=== PATIENT | female | born 1955 | race Caucasian/White ===

== ENCOUNTER 2022-12-04 12:34 | Outpatient (CLI) | payer BC, SELFPAY | END 2022-12-04 12:35 | disposition home or self-care (01) | LOC: NFLDREF 12:35 | PROVIDERS: Visit Provider Obstetrics & Gynecology | DX: R32 Unspecified urinary incontinence (principal) | CPT/HCPCS: 87086 ==

== ENCOUNTER 2023-01-21 08:41 | Day surgery (SDC) | payer BC, SELFPAY ==
[2023-01-21] VITALS (27 sets, daily range): BP systolic 101–133; BP diastolic 48–72; PULSE 41–67; RESP 12–16; TEMP 35.9–36.7; O2SAT 90–100; BMI 22.9
[2023-01-21] MEDS: LACTATED RINGERS 1000 ML 1,000 ML 100 ML IV ×2 (08:50→12:11)
--- NOTE | 2023-01-21 08:55 | P.GYNPRC_ITS ---
Procedure Note Date Seen: 01/21/23 Procedure Details: PREOPERATIVE DIAGNOSIS: Symptomatic uterine prolapse and stage II cystocele Stress urinary incontinence POSTOPERATIVE DIAGNOSIS: Symptomatic uterine prolapse and stage II cystocele Stress urinary incontinence PROCEDURE: Total vaginal hysterectomy with bilateral salpingo-oophorectomy, modified Moreno's culdoplasty, anterior colporrhaphy, retropubic mid urethral sling, cystoscopy SURGEON: Malathi Hill MD DAIRY CATTLE FARMER: Ingrid Street MD ANESTHESIA: Spinal, IV sedation IV FLUIDS: 1800 mL crystalloid URINE OUTPUT: Not measured EBL: 25 mL FINDINGS: 1. Pelvic exam under anesthesia confirmed stage II cystocele and uterine prolapse. There were no palpable adnexal masses on bimanual exam. 2. Uterine weight 27 g 3. Upon cystoscopy performed at multiple times, bilateral ureteral jets were noted and there was no injury to the bladder mucosa. The last cystoscopy was performed after placement of mid urethral sling, as described below. COMPLICATIONS: None PROCEDURE IN DETAIL: Patient was taken to the operating room with IV running. She received cefazolin in preoperative prophylaxis. She was positioned on the operating table in dorsal lithotomy position legs fully supported in Yellofin stirrups. She was prepped and draped in the usual sterile fashion. Nelson catheter was inserted. Exam under anesthesia revealed the above-noted findings. The anterior and posterior lips of the cervix were grasped with thyroid Ariana clamps. The cervicovaginal junction was infiltrated with a total of 20 mL of dilute vasopressin. Cervicovaginal junction was incised with the scalpel circumferentially. The vaginal epithelium was dissected off the uterosacral ligaments with a combination of blunt and sharp dissection bilaterally. The anterior colpotomy was performed sharply and a Arelis was placed between the uterus and bladder. Posterior colpotomy was performed sharply and a long weighted speculum was placed in the cul-de-sac. Bilateral uterosacral ligaments were clamped, cut, and suture ligated, and tagged for later identification. The cardinal and remnants of the broad ligament bilaterally were clamped, cut, and suture ligated. This freed the uterus from its attachments and it was delivered through the vagina. Attention was 1st turned to the right tube and ovary, which was physically normal in appearance. Ovary was quite small. The infundibulopelvic ligament was cross clamped, coagulated, and transected with The LigaSure Impact device. The remainder of the broad ligament was similarly cauterized and transected, freeing the right tube and ovary, which were removed from the pelvis. Hemostasis was noted. This procedure was repeated on the left side and hemostasis was again noted. The bowels were moved out of the pelvis with packing and the patient was placed in Trendelenburg position. The 2 modified Moreno's sutures were placed as follows. The 1st was placed approximately 1 cm medial to the left vaginal angle, through the left uterosacral ligament approximately 2.5 cm above the vaginal cuff, pulled through the peritoneum of the cul-de-sac, through the right uterosacral ligament, approximately 2.5 cm above the cuff, and through the vagina about 1 cm from the right vaginal cuff angle. This was labeled #1 and tagged for later identification. Another stitch was placed just medial to the 1st through the vaginal cuff, and just above the 1st along the uterosacral ligaments and the peritoneum of the cul-de-sac. This was labelled #2 and tagged for later identification. Attention was turned to the anterior vaginal wall. It was infiltrated with a total of 10 mL of Marcaine and epinephrine. An incision was made from the vaginal cuff proceeding to the urethrovesical junction. The vaginal epithelium was dissected off the fibromuscularis beneath it with a combination of first sharp, with then blunt dissection at the angles. This was done bilaterally. The fibromuscularis was then plicated in the midline with interrupted sutures of 0 Vicryl. The vaginal epithelium was trimmed slightly on the each side, and the vaginal epithelium was closed with a running stitch of 0 Vicryl. The first of several cystoscopies was performed, revealing no damage to the bladder mucosa. The patient was given sodium fluorescein for better visualization of ureteral jets, and these were noted bilaterally. The cystoscope was removed. Then, the modified Moreno's sutures were tied down beginning with that labeled #2 and then #1. After tying down each of the sutures, cystoscopy was performed, revealing bilateral ureteral jets. Thereafter, the vaginal epithelium was closed, incorporating the distalmost aspects of the uterosacral ligaments into the cuff angle closures. This was done in an interrupted fashion with 0 Vicryl. Nelson catheter was replaced. The mons was marked in the midline with a marker, extending from just above the clitoral rowe in the midline to just above the pubic symphysis. A jennifer was made approximately 2 cm just to the right and to the left of the midline, just over the pubic bone. 30 mL of saline was injected into the retropubic space just behind the pubic bone bilaterally. A weighted speculum was placed in the vagina. The anterior vaginal wall was gra sped in the midline 1 cm beneath the urethral meatus with an Allis clamp, and a 2nd Allis clamp was placed at the urethrovesical junction. The intervening anterior vaginal wall was infiltrated with Marcaine with dilute epinephrine, carrying this infiltration to the pubic bone bilaterally. A 1.5 cm incision was made in the anterior vaginal wall, and Metzenbaum scissors were used to dissect the subepithelial tunnel from that incision to the pubic bone, both to the right and the left of the urethra. The Nelson catheter was removed. A rigid catheter guide was placed inside a 16 [place] catheter, this was inserted into the bladder. Attention was first turned to placement of the right trocar. The trocar was placed within the blue plastic sheath. The trocar tip was inserted through the vaginal subepithelial tunnel on the patient's right side, and slowly guided upwards just behind the posterior aspect of the pubic bone, until the tip of the trocar was guided through the stab incision on the patient's right side. The bladder was deviated to the patient's left with the rigid catheter guide during this time. The plastic sheath was disconnected from the trocar, and the tip was grasped with hemostat. The trocar was then placed within the blue plastic sheath at the other end of the mesh. The trocar tip was inserted through the vaginal subepithelial tunnel on the patient's left side, and slowly guided upward just behind is posterior aspect of the pubic bone, until the tip of the trocar was guided through the stab incision on the patient's left side. The bladder was deviated to the patient's right with the rigid catheter guide during this time. The plastic sheath was again disconnected from the trocar, and the tip was grasped with a hemostat. Cystoscopy was then performed, revealing no injury to the bladder mucosa and the plastic sheaths were found to be freely movable outside the bladder dome. Nelson catheter was again inserted. The blue plastic sheaths were pulled through the stab incisions just above the pubic bone, and the mesh was tensioned over a #9 Hegar dilator. The mesh was trimmed to beneath the skin on her abdomen, and the sites were closed with surgical glue. The vaginal incision was closed with a running, locked stitch of 2 0 Vicryl. Hemostasis was noted. The patient tolerated the procedure well and was taken to recovery area in stable condition.
[2023-01-21] MEDS: SODIUM CHLORIDE 0.9 % (FLUSH) 10 ML SYRINGE IVF (09:13)
[2023-01-21 09:53] LABS: Hemoglobin* 13.6 gm/dL (12.0-16.0)
[2023-01-21 10:09] LABS: Creatinine* 0.8 mg/dL (0.5-1.5); Est. Creatinine Clearance* 42.59; Estimated Glomerular Filt Rate 80 ml/min
--- NOTE | 2023-01-21 10:27 | W.ANESCHARGE ---
Anesthesia Charges Start Date/Time Anesthesia Start Date: 01/21/23 Anesthesia Start Time: 11:01 Stop Date/Time Anesthesia Stop Date: 01/21/23 Anesthesia Stop Time: 14:00
[2023-01-21] MEDS: CEFAZOLIN 2 GM INJ IVP (11:10)
[2023-01-21] MEDS: 0.9 % SODIUM CHLORIDE 50 ml INJECTION (11:48)
[2023-01-21] MEDS: VASOPRESSIN 20 UNIT/ML INJ INJECTION (11:48)
--- NOTE | 2023-01-21 14:04 | W.ANESCHARGE ---
Anesthesia Charges Start Date/Time Anesthesia Start Date: 01/21/23 Anesthesia Start Time: 11:01 Stop Date/Time Anesthesia Stop Date: 01/21/23 Anesthesia Stop Time: 14:00
--- NOTE | 2023-01-21 14:48 | SUR.PHASEI ---
patient met discharge criteria per anesthesia
[2023-01-21] MEDS: LACTATED RINGERS 1000 ML 1,000 ML 125 ML IV ×2 (15:51→23:53)
[2023-01-21] MEDS: ONDANSETRON 2 MG/ML inj 4 MG IVP ×2 (15:51→23:59)
[2023-01-21] MEDS: KETOROLAC 15 MG/ML inj IVP ×2 (16:43→21:31)
[2023-01-21] MEDS: diphenhydrAMINE 50 MG/ML inj 12.5 MG IVP (17:50)
[2023-01-21] MEDS: LATANOPROST 0.005% OPHTH 1 DROP EYE-BOTH (18:42)
--- NOTE | 2023-01-21 18:55 | PC.NURSE ---
End of shift: Patient pleasant and cooperative. Patient vitally stable, lungs clear, BS WNL, IV running LR at 125. Patient on 1 L of oxygen as sats decrease when patient falls asleep. Patient denies pain. Patient was nauseous at one point, anti-emetic given, benadryl also given for itchiness and to improve expiratory breathing due to COPD. Nausea and itchiness resolved. Patient had a small dinner and tolerated regular diet well. Patient with scan blood on pad.
[2023-01-22] VITALS (15 sets, daily range): BP systolic 103–120; BP diastolic 56–66; PULSE 44–70; RESP 12–16; TEMP 36.5–36.6; O2SAT 90–96
[2023-01-22] MEDS: 0.9 % SODIUM CHLORIDE 500 ML 500 ML IV (02:17)
[2023-01-22] MEDS: KETOROLAC 15 MG/ML inj IVP ×2 (04:20→10:22)
[2023-01-22 06:10] LABS: Hemoglobin* 11.6 gm/dL (12.0-16.0)
[2023-01-22 06:27] LABS: Creatinine* 0.9 mg/dL (0.5-1.5); Est. Creatinine Clearance* 42.59; Estimated Glomerular Filt Rate 70 ml/min
[2023-01-22] MEDS: Fluticasone-Umeclidin-Vilanter [Trelegy Ellipta] 100-62.5-25 mcg 1 EACH IH (06:37)
[2023-01-22] MEDS: ONDANSETRON 2 MG/ML inj 4 MG IVP ×2 (06:43→09:03)
--- NOTE | 2023-01-22 06:57 | PC.NURSE ---
Pt A&O. Pt titrated to 0.5 L o2 with sats 91-94% while sleeping. Pt does have COPD. ?Rating pain 2-3/10 scheduled tordal given and pt stated relief. RR remains 12 and above. Pt denies SOB. Around 0200 500 NS bolus given for low urine output. Nelson patent and draining. Pt had one episode of nausea and had a 125ml emesis. Zofran given with stated relief. Surgical sites open to air w/out draining. Pt has scant amount of blood draining from vagina. Adequate output at 0600. Backfill bladder with 300cc of saline at 0630. Waiting for pt to urinate.
--- NOTE | 2023-01-22 08:34 | P.GYNPN_ITS ---
BODYWORK THERAPIST - A/P Assessment and plan (1) Status post hysterectomy with oophorectomy: Problem details: Total vaginal hysterectomy, BSO, TVT Status: Acute Plan Postop day 1, states to have been doing great last night until this morning when she woke up and was feeling nauseous and vomited once, has also significant pain on her mons pubis associated with right TVT incision. Patient describes it as hair pulling, physical exam is normal. Postop lab work with normal hemoglobin 11.6 and normal creatinine. She was able to empty her bladder this morning output of 75 mL, bladder scan 30 mL. This is appropriate, most likely insurance claim representative of dehydration. Will IV hydrate this morning, optimize nausea/vomiting medication, will add pain medication with p.o. Tylenol and if this does not resolve symptoms highly encourage patient to try low dose of oxycodone. Otherwise she has been able to ambulate without dizziness, shortness of breath. She has been passing gas. Discussed that if she is able to tolerate food without vomiting and if pain is tolerable by the afternoon that my recommendation would be to discharge home. Patient is in agreement with plan. Will follow-up. Postoperative Procedures: Procedures Operation Date: 01/21/23 10:35 Actual Procedure Side Surgeon p Total Vaginal Hysterectomy, Bilateral Salpingo-Oophorectomy, Modified Moreno's Culdoplasty, Anterior Colporrhaphy, Retro Pubic Mid Urethral Sling(TVT) Malathi Hill MD Postoperative day: 1 Postoperative status: doing well and marginal pain control Postoperative plan: routine post-op care and ambulate Time Spent With Patient Time: Total time spent is greater than 50% in coordination of care (as documented) at patient's floor/unit and/or counseling patient: Time with patient: less than 15 minutes BODYWORK THERAPIST- PN:Subj Post-Op Subjective Time Seen by Provider: 08:34 Date Seen: 01/22/23 Post Operative Details: Post-operative day number 1: status post Total vaginal hysterectomy, bilateral salpingo-oophorectomy, Moreno's culdoplasty, anterior repair, TVT. Subjective: pain not well controlled, ambulating well, voiding without difficulty, patient reports nausea and passing flatus BODYWORK THERAPIST-PN: Obj Exam Physical Exam: Vital signs: Temp Pulse Resp BP Pulse Ox O2 Del Method O2 Flow Rate 97.8 F 55 L 16 103/59 L 94 Room Air 1 01/22/23 03:00 01/22/23 03:00 01/22/23 06:26 01/22/23 03:00 01/22/23 03:00 01/22/23 03:00 01/21/23 22:38 Narrative: VITAL SIGNS: As noted above. GENERAL APPEARANCE: Alert, cooperative female in no acute distress. MOOD & AFFECT: Normal. ABDOMEN: Soft, non-distended and nontender. Bowel sounds present. : Mons pubis TVT incisions look to be bruised, right side more tender to palpa tion, no evidence of hematoma of fluid collection. Otherwise normal external female anatomy. Pad with minimal amount of blood. EXTREMITIES: Nonedematous. Well perfused. Nontender. Urinary Catheter Management: Urethral: Cath placed during this visit: no BODYWORK THERAPIST - PN: Obj Data Labs Labs: Laboratory Results - last 24 hr 01/21/23 01/22/23 09:40 05:59 Hgb 13.6 11.6 L Creatinine 0.8 0.9 Estimated Creat Clear 42.59 42.59 Estimated GFR 80 70 Blood Type O Positive Antibody Screen NEGATIVE
[2023-01-22] MEDS: buPROPion XL 150 MG TABLET 300 MG PO (09:03)
[2023-01-22] MEDS: ACETAMINOPHEN 500 MG TABLET 1000 MG PO (09:03)
[2023-01-22] MEDS: LACTATED RINGERS 1000 ML 1,000 ML 125 ML IV (10:22)
--- NOTE | 2023-01-22 13:23 | PM.GYNDS1 ---
DS: Providers Provider Time Seen by Provider: 08:00 Date Seen: 01/22/23 Primary care physician: Schuyler Mcdonough DO Attending Physician on discharge: MD Alberto Date of Discharge: 01/22/23 DS: Diagnosis Discharge Diagnosis (1) Status post hysterectomy with oophorectomy: Status: Acute Problem details: Total vaginal hysterectomy, BSO, TVT DIGITAL MARKETING CONSULTANT-Discharge Summary Hospital Course Hospital Course Narrative: Patient is a 67 year old admitted on 01/21/2023 for elective surgery. Indication for surgery: Pelvic organ prolapse, stress urinary incontinence. She had an uncomplicated surgery. Postoperative course has been uneventful. Vitals have been stable. She has remained afebrile. Today, on postoperative day 1, she reports the pain is well controlled. She has been able to ambulate Without difficulty. She is tolerating regular diet. She is passing flatus. Nelson catheter has been removed, and she is voiding without difficulty. Time Spent with Patient Time attestation: Total time spent providing and/or coordinating discharge services: Time spent: Less than 30 minutes DIGITAL MARKETING CONSULTANT - Exam Physical Exam: Vital signs: Temp Pulse Resp BP Pulse Ox O2 Del Method O2 Flow Rate 97.7 F 70 14 103/56 L 93 Room Air 1 01/22/23 11:20 01/22/23 11:20 01/22/23 11:21 01/22/23 11:20 01/22/23 11:20 01/22/23 11:20 01/21/23 22:38 Narrative: VITAL SIGNS:? As noted above. GENERAL APPEARANCE:? Alert, cooperative female in no acute distress. MOOD & AFFECT:? Normal. ABDOMEN:? Soft, non-distended and nontender. Bowel sounds present. : Mons pubis TVT incisions look to be bruised, right side more tender to palpation, no evidence of hematoma of fluid collection. Otherwise normal external female anatomy. Pad with minimal amount of blood. EXTREMITIES:? Nonedematous. Well perfused.? Nontender. DIGITAL MARKETING CONSULTANT - DS: Data Data Completed and Pending Labs on day of discharge: Labs from last 24 hours 01/22/23 05:59 Hgb 11.6 L Creatinine 0.9 Estimated Creat Clear 42.59 Estimated GFR 70 Procedures Procedures: Procedures Operation Date: 01/21/23 10:35 Actual Procedure Side Surgeon p Total Vaginal Hysterectomy, Bilateral Salpingo-Oophorectomy, Modified Moreno's Culdoplasty, Anterior Colporrhaphy, Retro Pubic Mid Urethral Sling(TVT) Malathi Hill MD Discharge Plan Discharge Disposition: Home, Self-Care Discharging Surgeon: Ree Dominguez Follow-Up Appointment: 2 weeks post op Prescriptions: New acetaminophen 500 mg Tablet 1,000 mg PO Q6H PRNQty: 20 0RF ibuprofen 600 mg tablet 600 mg PO Q6H PRNQty: 20 0RF Continued bupropion HCl 150 mg tablet extended release 24 hr 300 mg PO DAILY Trelegy Ellipta 100-62.5-25 mcg blister with device 1 inh inhalation DAILY Combivent Respimat 20-100 mcg/actuation mist 1 puff inhalation QID PRN albuterol sulfate 90 mcg/actuation HFA aerosol inhaler 2 puff inhalation Q4H PRN zolpidem 5 mg tablet 5 mg PO HS PRN (Reason: insomnia) latanoprost 0.005 % drops 1 drp ophthalmic (eye) QPM cyanocobalamin (vitamin B-12) 1,000 mcg/mL solution 1,000 mcg IM Q28D Activity Level: Light activity Activity Detail: No heavy lifting more than 15-20 pounds for 6 weeks, nothing vaginally for 6 weeks Discharge Diet: Regular Patient Instructions: Surgical Site Infections (DC) Forms: Work/School Release Follow-up: Schuyler Mcdonough DO [Primary Care Provider] - Discharge Orders: Discharge Order (Routine); Ordered 01/22/23 Ordered By: Ree Dominguez
--- NOTE | 2023-01-22 14:32 | PC.NURSE ---
Pt calm and cooperative during shift. Pt has had no complaints of pain. Pt had N/V early am during shift. Resolved with medication and time. Pt has 3 lap sites that are glued, intact, no drainage. Pt has scant amounts of blood in urine. Pt is tolerating regular diet. Pt discharging home with .? ? ?
== END 2023-01-22 14:30 | disposition home or self-care (01) ==
LOC: OR 08:45 → MEDSURG 08:47
PROVIDERS: PCP Family Medicine; Visit Provider Obstetrics & Gynecology
PROC: (CPT 57260; principal; 2023-01-21 10:15)
DX: N81.3 Complete uterovaginal prolapse (principal); N39.3 Stress incontinence (female) (male); G89.18 Other acute postprocedural pain; R11.2 Nausea with vomiting, unspecified
CPT/HCPCS: 58263; 57288; 00944; 36415; 82565; 85018; 86850; 86900; 86901; 88307; 88342; A9270; C1771; J0690; J1100; J1200; J1885; J2250; J2274; J2405; J2704; J3010; J7120

== ENCOUNTER 2023-02-22 09:45 | Outpatient (CLI) | payer BC, SELFPAY | END 2023-02-22 09:46 | disposition home or self-care (01) | PROVIDERS: PCP Family Medicine; Visit Provider Obstetrics & Gynecology | DX: R68.82 Decreased libido (principal) | CPT/HCPCS: 84403; 84443 ==

== ENCOUNTER 2023-07-02 09:18 | Outpatient (CLI) | payer BC, SELFPAY | END 2023-07-02 09:19 | disposition home or self-care (01) | LOC: NFLDREF 09:18 | PROVIDERS: PCP Family Medicine; Visit Provider Obstetrics & Gynecology | DX: R68.82 Decreased libido (principal); Z79.899 Other long term (current) drug therapy | CPT/HCPCS: 84403 ==

== ENCOUNTER 2023-09-02 06:05 | Day surgery (SDC) | payer BC, SELFPAY ==
[2023-09-02] VITALS (15 sets, daily range): BP systolic 123–149; BP diastolic 66–84; PULSE 46–63; RESP 12–22; TEMP 36.2–36.6; O2SAT 94–100; BMI 21.9
--- OUTSIDE RECORDS SUMMARY | 2023-09-02 06:09 | XMS_ITS | Clinical Summary ---
Author Name Unknown Organization [facility] Address [place], [place] [address] Care Team Providers Care Global Expansion Sales Director Name Role Phone Leana Valencia MD Primary Care Provider [phone] Allergies Active Allergy Reactions Criticality Noted Date Comments Prochlorperazine Anaphylaxis 06/21/2007 Venlafaxine Analogues Hallucinations 02/19/2016 Iodinated Contrast Media Anaphylaxis High 02/20/2008 Diatrizoate Allergen Myalgia 06/21/2007 Pneumococcal Vaccine Edema 09/01/2010 Size of a basketball at site Fluoxetine Other - Describe In Comment Field 02/19/2016 Yawned a lot Medications Medication Sig Dispensed Refills Start Date End Date Status latanoprost (XALATAN) 0.005 % ophthalmic solution Place 1 Drop into left eye at bedtime. 2.5 mL 0 10/01/2014 Active ipratropium-albute roL (combivent respimat) (20-100 mcg each actuation) mist inhalerIndications :Chronic obstructive pulmonary disease, unspecified COPD type (HC) Inhale 1 Puff by mouth 4 times daily if needed for Shortness Of Breath. 3 Each 4 06/09/2022 Active buPROPion (WELLBUTRIN XL) 150 mg Extended-Release tabletIndications: Anxiety Take 1-2 Tablets (150-300 mg) by mouth every morning. For mood. 180 Tablet 3 06/09/2022 Active albuterol-ipratrop ium (DUONEB) (2.5-0.5 mg) in 3 mL NEBULIZATION solutionIndication s:Chronic obstructive pulmonary disease, unspecified COPD type (HC) Inhale 3 mL via a nebulizer 4 times daily if needed for Shortness Of Breath (shortness of breath). 120 mL 11 06/09/2022 Active albuterol HFA (PRO-AIR; VENTOLIN; PROVENTIL) 90 mcg/actuation inhalerIndications :Chronic obstructive pulmonary disease, unspecified COPD type (HC) Inhale 2 Puffs by mouth every 4 hours if needed for Shortness Of Breath or Wheezing. 1 Each 5 11/16/2022 Active fluticasone wgr-fjgsygcnrpja-o ilanterol (Trelegy Ellipta) 100-62.5-25 mcg inhalerIndications :Chronic obstructive pulmonary disease, unspecified COPD type (HC) Inhale 1 Puff by mouth once daily. 180 Each 1 11/16/2022 Active zolpidem (AMBIEN) 5 mg tabletIndications: Insomnia secondary to anxiety TAKE 1 TABLET (5 MG) BY MOUTH AT BEDTIME IF NEEDED FOR SLEEP.(QUANTITY PER INSU) 15 Tablet 2 06/10/2023 Active estradioL (ESTRACE) 0.01% (0.1 mg/g) vaginal cream Insert 1 g into the vagina every Wednesday and Wednesday. 0 07/02/2023 Active ketoconazole 2% shampoo (NIZORAL) 2 % shampoo WASH SCALP 2 TO 3 TIMES PER WEEK.LATHER & LET SIT AT LEAST 5 MINUTES BEFORE RINSING. 0 07/28/2023 Active busPIRone (BUSPAR) 10 mg tabletIndications: Anxiety state Take 1 Tablet (10 mg) by mouth 3 times daily if needed for Anxiety. 30 Tablet 1 01/05/2023 4 Discontinue d(*Patient states no longer taking) cephalexin (KEFLEX) 500 mg capsuleIndications :Acute cystitis with hematuria Take 1 Capsule (500 mg) by mouth three times daily. 21 Capsule 0 01/27/2023 4 Discontinue d(*Med complete/Re gimen complete/Le kelechi of care change) Catheter 14 ications:Urin sridevi retention Use as needed for urinary retention. 3 Each 01/29/2023 4 Discontinue d(*Patient states no longer taking) Hospital, Clinic, or Other Facility Administered Medication Ordered Dose Route Frequency Start Date End Date Status cyanocobalamin (VITAMIN B12) 1,000 mcg/mL injection 1,000 mcgIndications:Low serum vitamin B12 1000 mcg IM Q 4 WEEKS (28 DAYS) 01/06/2023 12/08/2023 Active cyanocobalamin (VITAMIN B12) 1,000 mcg/mL injection 1,000 mcgIndications:Low serum vitamin B12 1000 mcg IM Q 4 WEEKS (28 DAYS) 03/03/2023 02/02/2024 Active Active Problems Problem Noted Date Diagnosed Date Cystocele with uterine prolapse 08/25/2023 Glaucoma 08/25/2023 History of alcoholism 02/27/2022 Seasonal affective disorder 02/27/2022 Chronic rhinitis 04/01/2015 Thyroid nodule 10/01/2014 COPD (chronic obstructive pulmonary disease) Adjustment disorder with depressed mood 08/31/19 11 Insomnia secondary to anxiety Overview: on gabapentin Anxiety Overview: can't take SSRI meds, doesn't process them well Resolved Problems Problem Noted Date Diagnosed Date Resolved Date Low serum vitamin B12 03/04/20212023 Encounters Date Type Department Care Team Description 08/25/2023 9:20 AM RN TRANSFER Preop Visit [address] [phone] Leana Valencia MD Preoperative Exam (Bladder surgery); Immunization/Injection 08/25/2023 Travel 07/25/[address] [phone] Schuyler Mcdonough DO Screening 06/10/[address] [phone] Schuyler Mcdonough DO Refill Request (Zolpidem) from Last 3 Months Immunizations Name Administration Dates Next Due AMB Influenza, IIV4 PF (=>6 mos Flulaval,Fluzone Fluarix)(Flu Clinic Only) 06/23/2018 COVID-19 vaccine (Moderna 10 0mcg/0.5mL) PF, MDV 08/13/2021,10/04/2020,09/06/2020 HIB PRP-D (ProHIBIT) 12/06/2001 Influenza, High-dose Inactivated 06/06/2019 Influenza, IIV3 (Age >=3 years) 07/27/2014,07/07,07/27/2012 Influenza, IIV4 08/01/2017,06/15/2016,05/27/2015 Influenza, IIV4 (=>6mos) MDV 08/01/2017 Influenza, Inactivated AIIV4 (Age 65+ Years) Preserv Free 08/25/2023,06/09/2022,06/20/2020 Meningococcal Vaccine (Menomune) 12/06/2001 Pneumococcal Poly,23-Valent (Pneumovax) 08/21/20 09,12/06/2001 Pneumococcal conj 13-Valent (Prevnar 13) 022 Tdap 01/05/2023,08/08/2013 Family History Medical History Relation Name Comments Psychiatric illness Mother dementia , Alzheimer's Cancer-breast No Family History Relation Name Status Comments Mother Social History Tobacco Use Types Packs/Day Years Used Date Smoking Tobacco: Former Cigarettes 1 32 1 970 - 2001 Passive Smoke Exposure: Current Smokeless Tobacco: Never Tobacco Cessation:Counseling Given: Not Answered Alcohol Use Standard Drinks/Week Comments No 0 (1 standard drink = 0.6 oz pur e alcohol) PHQ-2 Answer Date Recorded PHQ-2 TOTAL SCORE 0 06/09/2022 Social Connections Answer Date Recorded Frequency of Communication with Friends and Fami ly Not on file 06/10/2023 Financial Resource Strain Answer Date R ecorded Difficulty of Paying Living Expenses 3 06/09/2022 Difficulty of Paying Living Expenses Not on file 06/09/2022 Food Insecurity Answer Date Recorded Worried About Running Out of Food in the Last Ye ar 1 06/09/2022 Transportation Needs Answer Date Record ed Lack of Transportation (Medical) 1 06/09/2022 Housing Stability Answer Date Recorded Unable to Pay for Housing in the Last Year 1 06/09/2022 Sex and Gender Information Value Date Recorded Sex Assigned at Not on file Gender Identity Not on file Sexual Orientation Not on file Obstetrics History Last Filed Vital Signs Vital Sign Reading Time Taken Comments Blood Pressure 104/64 08/25/2023 9:35 AM RN TRANSFER Pulse 64 08/25/2023 9:35 AM RN TRANSFER Temperature 36.6 ??C (97.8 ??F) 08/25/2023 9:35 AM CS T Respiratory Rate 12 01/29/2023 2:25 PM CDT Oxygen Saturation 95% 08/25/2023 9:35 AM RN TRANSFER Inhaled Oxygen Concentration - - Weight 59 kg (130 lb) 08/25/2023 9:35 AM RN TRANSFER Height 161.3 cm (5' 3.5) 08/25/2023 9:35 AM RN TRANSFER Body Mass Index 22.67 08/25/2023 9:35 AM RN TRANSFER Plan of Treatment Health Maintenance Due Date Last Done Comments Zoster (shingles) series for age 50+ (1 of 2) 2004 DEXA/DXA scan for age 65+ 2019 Mammogram for age 45-75 07/17/2021 07/17/20 20, 05/07/2014 ([facility] of [facility]), 08/08/2013, Additional history exists COVID-19 vaccine series ( season) 2023 08/13/2021, 10/04/2020, 09/06/2020 Depression screening for age 12+ 06/09/2023 06/09/2022, 02/27/2022, 06/20/2020, Additional history exists Pneumococcal series for age 65+ (3 of 3 - PPSV23 or PCV20) 06/09/2023 06/09/2022, 08/21/2009, 12/06/2001 BMI (ht and wt on same day) for age 18+ 08/25/2024 08/25/2023, 01/05/2023, 06/09/2022, Additional history exists Fecal testing sDNA-FIT (Cologuard) for age 45-75 03/05/2025 03/05/2022 Hepatitis C screening for age 18-79 03/23/2025 Postponed from 1972 (Patient discretion) Lipids for age 45-75 02/27/2027 02/27/2022, 03/03/2021, 06/20/2020, Additional history exists Tetanus booster 01/05/2033 01/05/2023, 08/08/2013 Fecal testing non-DNA (FIT,FOBT,iFOBT) for age 45-75 Discontinued 04/08/2020, 12/05/2017, 11/05/2016 Tdap Completed 01/05/2023, 08/08/2013 Influenza for age 65+ Completed 08/25/2023 , 06/09/2022, 06/20/2020, Additional history exists Procedures Procedure Name Priority Date/Time Associated Diagnosis Comments BASIC METABOLIC PANEL Routine 08/25/2023 10:09 AM RN TRANSFER Incomplete bladder emptying CBC W PLT NO DIFF Routine 08/25/2023 10: 09 AM RN TRANSFER Incomplete bladder emptying from Last 3 Months Results * (ABNORMAL) CBC W PLT NO DIFF (08/25/2023 10:09 AM RN TRANSFER) WHITE BLOOD COUNT 12.6(H) 4.5 - 11.0 thou/cu mm 08/25/2023 10:40 AM [facility] RED BLOOD COUNT 4.53 4.00 - 5.20 mil/cu mm 08/25/2023 10:40 AM [facility] HEMOGLOBIN 14.4 12.0 - 16.0 g/dL 08/25/2023 10:40 AM [facility] HEMATOCRIT 45.2 33.0 - 51.0 % 08/25/2023 10:40 AM [facility] MCV 100 80 - 100 fL 08/25/2023 10:40 AM [facility] MCH 31.8 26.0 - 34.0 pg 08/25/2023 10:40 AM [facility] MCHC 31.9(L) 32.0 - 36.0 g/dL 08/25/2023 10:40 AM [facility] RDW 13.4 11.5 - 15.5 % 08/25/2023 10:40 AM [facility] PLATELET COUNT 451(H) 140 - 440 thou/cu mm 08/25/2023 10:40 AM [facility] MPV 8.9 6.5 - 11.0 fL 08/25/2023 10:40 AM [facility] Blood BLOOD SPECIMEN / Unknown Venipuncture / Unknown 08/25/2023 10:09 AM RN TRANSFER 08/25/2023 10:11 AM RN TRANSFER Leana Valencia MD HEMATOLOGY [facility] [address] [place] [address] * (ABNORMAL) BASIC METABOLIC PANEL (08/25/2023 10:09 AM [facility]) SODIUM 137 136 - 145 mmol/L 08/25/2023 11:00 AM [facility] POTASSIUM 4.6 3.5 - 5.1 mmol/L 08/25/2023 11:00 AM [facility] CHLORIDE 100 98 - 107 mmol/L 08/25/2023 11:00 AM [facility] CO2,TOTAL 26 22 - 29 mmol/L 08/25/2023 11:00 AM [facility] ANION GAP 11 5 - 18 08/25/2023 11:00 AM [facility] GLUCOSE 91 70 - 99 mg/dL 08/25/2023 11:00 AM [facility] CALCIUM 9.1 8.8 - 10.2 mg/dL 08/25/2023 11:00 AM [facility] BUN 14 8 - 23 mg/dL 08/25/2023 11:00 AM [facility] CREATININE 0.92(H) 0.50 - 0.90 mg/dL 08/25/2023 11:00 AM [facility] BUN/CREAT RATIO 15 10 - 20 11:00 AM [facility] eGFR 68(L) >90 mL/min/1.7 3m2 08/25/2023 11:00 AM [facility] Comment:As of 2021, eG FR is calculated by the CKD-EPI creatinine equation without race adjustment. ??eGFR can be influenced by muscle mass, exercise, and diet. ??The reported eGFR is an estimation only and is only applicable if the renal function is stable. Blood BLOOD SPECIMEN / Unknown Venipuncture / Unknown 08/25/2023 10:09 AM RN TRANSFER 08/25/2023 10:11 AM RN TRANSFER Leana Valencia MD CHEMISTRY [facility] [address] [place] [address] from Last 3 Months Care Teams Global Expansion Sales Director Relationship Specialty Start Date End Date Leana Valencia MD [address] [facility] [place] [address] PCP - General Internal Medicine 08/25/23
[2023-09-02] MEDS: LACTATED RINGERS 1000 ML 1,000 ML 100 ML IV (06:35)
[2023-09-02] MEDS: SODIUM CHLORIDE 0.9 % (FLUSH) 10 ML SYRINGE IVF (06:35)
--- NOTE | 2023-09-02 07:27 | W.PM.H&PU ---
History & Physical Update History & Physical Update H&P Reviewed and patient assessed: No changes noted H&P Updates: Preoperative diagnosis: Urinary hesitancy and intermittent urinary retention after placement of retropubic mid urethral sling in January 2023 Planned procedures: Lysis of mid urethral sling Physical exam: General: No acute distress Psych: Alert and oriented x3, full affect HEENT: Normocephalic, atraumatic
[2023-09-02] MEDS: CEFAZOLIN 2 GM INJ IVP (07:32)
--- NOTE | 2023-09-02 08:09 | W.ANESCHARGE ---
Anesthesia Charges Start Date/Time Anesthesia Start Date: 09/02/23 Anesthesia Start Time: 07:18 Stop Date/Time Anesthesia Stop Date: 09/02/23 Anesthesia Stop Time: 08:18
--- NOTE | 2023-09-02 08:23 | W.ANESCHARGE ---
Anesthesia Charges Start Date/Time Anesthesia Start Date: 09/02/23 Anesthesia Start Time: 07:18 Stop Date/Time Anesthesia Stop Date: 09/02/23 Anesthesia Stop Time: 08:18
--- NOTE | 2023-09-02 08:24 | W.PM.GYNPROC ---
Procedure Note Date of procedure: 09/02/23 Pre-op diagnosis: Urinary hesitancy and retention after placement of mid urethral sling Post-op diagnosis: same Procedure: Cystoscopy Lysis of mid urethral sling Anesthesia: MAC Complications: None Surgeon: Malathi Hill MD Estimated blood loss (mL): 5 IV fluids (mL): 800 Pathology: none sent Condition: stable Disposition: same day Findings: 1. Upon cystoscopy performed prior to lysis of sling, the urethra and bladder mucosa were normal appearance. There is no erosion of mesh through the urethra or the bladder. Cystoscopy was completed after lysis of mesh, with similar findings. 2. Surgical absence of cervix and uterus. Stage I-II cystocele noted. Procedure Description: Patient was taken to the operating room with IV running. She was positioned in dorsal lithotomy position with her legs fully supported in Yellofin stirrups. General anesthesia was administered. She was prepped and draped in the usual sterile fashion. Bimanual exam was performed for the above-noted findings. Cystoscopy was performed, for the above noted findings. Nelson catheter was placed. Weighted speculum was inserted. Shakira clamps were used to grasp the vaginal epithelium overlying the midurethra. The vaginal epithelium in this area was injected with a total of 10 mL of 1% lidocaine with dilute epinephrine. An incision was made in the vaginal epithelium over the mid urethra, overlying the previous scar from sling placement. The vaginal epithelium on the edges of the incision was grasped with Allis clamps, and the vaginal epithelium was dissected off the underlying sling. Sling was grasped with hemostat, and was pulled away from the underlying urethra, whilst a scissors was used to dissect away the investing tissue beneath this. A right angle clamp was inserted beneath the sling, and scissors was used to lyse it through the portion directly beneath the urethra. The sling edges then the; approximately 1 cm of space was noted between the edges before the vaginal epithelium was closed. The Nelson catheter was removed, and another cystoscopy performed, again confirming no injury of the urethra. Nelson catheter was replaced. The vaginal epithelium overlying the sling was closed with a running stitch of 3 O Vicryl. Hemostasis was noted. Nelson catheter was removed. Patient tolerated procedure well and was taken to recovery area in stable condition.
== END 2023-09-02 10:20 | disposition home or self-care (01) ==
PROVIDERS: PCP Family Medicine; Visit Provider Obstetrics & Gynecology
PROC: (CPT 56620; principal; 2023-09-02 07:15)
DX: N99.89 Other postprocedural complications and disorders of genitourinary system (principal); R33.9 Retention of urine, unspecified; R39.11 Hesitancy of micturition
CPT/HCPCS: 57287; 00910; 36415; 86850; 86900; 86901; J0690; J1100; J2405; J2704; J3010; J7120

== ENCOUNTER 2025-03-21 09:30 | Outpatient (CLI) | payer BC, SELFPAY | END 2025-03-21 09:31 | disposition home or self-care (01) | LOC: NFLDREF 03-22 17:15 | PROVIDERS: PCP Family Medicine; Referring Provider Family Medicine; Visit Provider Obstetrics & Gynecology | DX: R33.9 Retention of urine, unspecified (principal) | CPT/HCPCS: 87086 ==